=== PATIENT | male | born 1995 | race Caucasian/White ===

== ENCOUNTER → 2018-02-03 | Outpatient (CLI) | payer OTHER ==
--- NOTE | ~2018-02-03 | 2DMMODE ---
[facility] [employer] [place] [address] 2 D/M-MODE ECHOCARDIOGRAM Name: REFUGIO RETANA Room #: [facility]#: [id number] Admission: 02/03/18 Attend Phys: Kermit Coburn, Discharge: Date of : 89 Date of Service: 02/03/18 0850 Report #: [id number] THIS REPORT FOR: //name// APPROVED REPORT Study performed: 02/03/2018 08:08:35 EXAM: Comprehensive 2D, Doppler, and color-flow Echocardiogram Patient Location: Out-Patient Status: routine BSA: 1.81 HR: 59 bpm BP: 120/70 mmHg Rhythm: NSR Other Information Study Quality: Good Indications Hypertension 2D Dimensions RVDd: 31.63 mm IVSd: 9.10 (7-11mm) LVOT Diam: 21.07 (18-24mm) LVDd: 45.11 mm PWd: 9.30 (7-11mm) Ascending Ao: 25.84 (22-36mm) LVDs: 31.00 (25-40mm) Aortic Root: 29.59 mm Volumes Left Atrial Volume (Systole) Single Plane 4CH: 32.37 mL Single Plane 2CH: 38.91 mL LA ESV Index: 22.00 mL/m2 Aortic Valve AoV Peak Dale.: 1.24 m/s AO Peak Gr.: 6.16 mmHg LVOT Max P.76 mmHg LVOT Max V: 1.09 m/s SHAKILA Vmax: 3.07 cm2 Mitral Valve E/A Ratio: 3.4 MV Decel. Time: 177.77 ms MV E Max Dale.: 0.93 m/s [facility] [address] [place] [address] 2 D/M-MODE ECHOCARDIOGRAM Name: REFUGIO RETANA Room #: [facility]#: [id number] Admission: 02/03/18 Attend Phys: Kermit Coburn, Discharge: Date of : 89 Date of Service: 02/03/18 0850 Report #: [id number] MV A Dale.: 0.27 m/s MV PHT: 51.55 ms IVRT: 73.82 ms Pulmonary Valve PV Peak Dale.: 1.08 m/s PV Peak Gr.: 4.64 mmHg Pulmonary Vein P Vein S: 0.36 m/s P Vein A: 0.21 m/s P Vein D: 0.69 m/s P Vein A Dur.: 115.3 msec P Vein S/D Ratio: 0.52 Tricuspid Valve TR Peak Dale.: 1.97 m/s RAP Estimate: 5.00 mmHg TR Peak Gr.: 15.56 mmHg PA Pressure: 21.00 mmHg Left Ventricle The left ventricle is normal size. There is normal LV segmental wall motion. There is normal left ventricular wall thickness. Left ventricular systolic function is normal. LVEF is 60-65%. The left ventricular diastolic function is normal. Right Ventricle The right ventricle is normal size. The right ventricular systolic function is normal. Atria The left atrium size is normal. The right atrium size is normal. Aortic Valve The aortic valve is normal in structure. No aortic regurgitation is present. There is no aortic valvular stenosis. Mitral Valve The mitral valve is normal in structure. Trace mitral regurgitation. No evidence of mitral valve stenosis. Tricuspid Valve The tricuspid valve is normal in structure. Trace tricuspid regurgitation. Pulmonic Valve The pulmonary valve is normal in structure. Trace pulmonic regurgitation. [facility] [address] [place] [address] 2 D/M-MODE ECHOCARDIOGRAM Name: REFUGIO RETANA [id number] Admission: 02/03/18 Attend Phys: Kermit Coburn, Discharge: Date of : 89 Date of Service: 02/03/18 0850 Report #: [id number] Great Vessels The aortic root is normal in size. IVC is normal in size and collapses >50% with inspiration. Pericardium There is no pericardial effusion. <Conclusion> 1. Normal echocardiogram with Doppler. EF 60-65% <ELECTRONICALLY SIGNED> By: Antoine Tucker MD, [facility] 02/03/1850 9 Antoine Tucker MD, [facility] /INF
== END ==
LOC: NUC 02-02 14:12
DX: I10 Essential (primary) hypertension (principal)